=== PATIENT | female | born 1950 | race Caucasian/White ===

== ENCOUNTER → 2018-12-05 | Outpatient (CLI) | payer MEDICARE ==
[~2018-12-05] MED LIST: DULO60CA63 PO; HYDR-4457 PO; IBUP-1889 PO; LORA10CA9 PO; OMEP40CA37 PO; PANT40TA25 PO; RALO60TA13 PO; ROSU5TAB11 PO
== END | disposition home or self-care (01) ==
LOC: RAH 09:26
PROVIDERS: ATTEND Family Medicine
DX: Z12.31 Encounter for screening mammogram for malignant neoplasm of breast (principal)
CPT/HCPCS: 77067